=== PATIENT | male | born 1945 | race African-American/Black ===

== ENCOUNTER 2020-09-13 22:22 | Inpatient (IN) ==
[2020-09-13] MEDS ORDERED: SODIUM CHLORIDE 0.9% 1,000 ML IV STA (23:04)
[2020-09-13 23:09] LABS: Eosinophils % 0.2 % (0.00-10.9); Hemoglobin 10.6 GM/DL (14.0-18.0); Immature Granulocytes % 0.5 %; Immature Granulocytes Absolute 0.02 #; Lymphocytes # 0.6 10*3/uL (1.4-4.0); Mean Corpuscular HGB Conc 33.1 GM/DL (32-36); Mean Corpuscular Volume 85.1 FL (87-102); Mean Platelet Volume 10.1 FL (9.6-12.0); Monocytes % 6.4 % (1.7-12.7); Neutrophils % 78.9 % (38.7-73.9); Platelet Count 173 T/CUMM (130-400); Red Blood Count 3.76 MC/CUMM (3.8-5.5); Red Cell Distribution Width 12.5 % (9.3-17.3); White Blood Count 4.2 T/CUMM (4-12)
[2020-09-13 23:20] LABS: INR 1.1; PT Patient Result 11.3 SECS (9.8-11.9)
[2020-09-13 23:28] LABS: Albumin 2.8 G/DL (3.4-5.0); Bilirubin,Total 0.9 MG/DL (0.2-1.0); Calcium 8.2 MG/DL (8.5-10.1); Ferritin 1485.1 ng/ml (26-388); Osmolality,Calculated 282.5 MOS/KG (273-304); Potassium 3.8 MMOL/L (3.5-5.1); Total Protein 7.7 G/DL (6.4-8.3)
[2020-09-14] MEDS ORDERED: DEXAMETHASONE 10 MG/1 ML VIAL IV ONE (00:58)
[2020-09-14] MEDS ORDERED: AZITHROMYCIN INJ 500 MG in SODIUM CHLORIDE 0.9% 250 ML IV STA (00:58)
[2020-09-14] MEDS ORDERED: ONDANSETRON 4 MG/2 ML VIAL IV PRN (01:22)
[2020-09-14] MEDS ORDERED: NICOTINE 21 MG/24 HR PATCH TRANSDERM PRN (01:22)
[2020-09-14] MEDS ORDERED: MORPHINE 4 MG/1 ML VIAL IV PRN (01:22)
[2020-09-14] MEDS ORDERED: GLUCAGON 1 MG VIAL IM PRN (01:22)
[2020-09-14] MEDS ORDERED: MELATONIN 3 MG TABLET PO PRN (01:22)
[2020-09-14] MEDS ORDERED: ACETAMINOPHEN 325 MG TABLET PO PRN (01:22)
[2020-09-14] MEDS ORDERED: hydrALAZINE 20 MG/1 ML VIAL IV PRN (01:22)
[2020-09-14] MEDS ORDERED: diphenhydrAMINE CAP 25 MG CAPSULE PO PRN (01:22)
[2020-09-14] MEDS ORDERED: DEXTROSE 50% 25 GM/50 ML VIAL IV PRN (01:22)
[2020-09-14] MEDS ORDERED: SODIUM CHLORIDE 0.9% 1,000 ML IV SCH (01:30)
[2020-09-14 02:06] LABS: ABG Base Excess -3.8 MMOL/L (-2.5-2.5); ABG HCO3 20.5 MMOL/L (20-26); ABG Oxygen Saturation 96.6 % (95-100); ABG PCO2 34.1 MM HG (35-48); ABG PH 7.396 (7.35-7.45); ABG TCO2 21.5 MMOL/L (23-27)
[2020-09-14] MEDS: cefTRIAXone 1,000 MG in SYRINGE 1 EACH IV SCH (02:35)
[2020-09-14] MEDS ORDERED: REMDESIVIR 200 MG in SODIUM CHLORIDE 0.9% 210 ML IV ONE (09:00)
[2020-09-14] MEDS ORDERED: SODIUM CHLORIDE 0.9% 1,000 ML IV PRN (09:42)
[2020-09-14] MEDS: FAMOTIDINE 20 MG TABLET PO SCH ×2 (10:09→21:32)
[2020-09-14] MEDS: CHOLECALCIFEROL 1,000 UNIT TABLET PO SCH (10:09)
[2020-09-14] MEDS: ZINC GLUCONATE 50 MG TABLET PO SCH (10:09)
[2020-09-14] MEDS: ASCORBIC ACID 500 MG TABLET PO SCH ×2 (10:10→21:32)
[2020-09-14] MEDS: ENOXAPARIN 40 MG/0.4 ML SYRINGE SUBCUT SCH (10:10)
[2020-09-14] MEDS: CETIRIZINE 10 MG TABLET PO SCH (10:10)
[2020-09-14] MEDS: INSULIN REGULAR 100 UNIT/ML SUBCUT SCH ×4 (10:11→22:18)
[2020-09-14] MEDS: DEXAMETHASONE 4 MG/1 ML VIAL IV SCH (10:12)
[2020-09-14] MEDS: atenoloL 50 MG TABLET PO SCH (16:26)
[2020-09-14] MEDS ORDERED: INSULIN GLARGINE 100 UNIT/ML SUBCUT SCH (21:00)
[2020-09-14] MEDS ORDERED: FUROSEMIDE 40 MG/4 ML VIAL IV ONE (23:48)
[2020-09-15 06:26] LABS: Calcium 8.5 MG/DL (8.5-10.1); Osmolality,Calculated 296.3 MOS/KG (273-304); Potassium 5.1 MMOL/L (3.5-5.1)
[2020-09-15 06:31] LABS: Albumin 2.5 G/DL (3.4-5.0); Bilirubin,Total 0.7 MG/DL (0.2-1.0); Calcium 8.3 MG/DL (8.5-10.1); Osmolality,Calculated 296.3 MOS/KG (273-304); Potassium 5.3 MMOL/L (3.5-5.1); Total Protein 6.8 G/DL (6.4-8.3)
[2020-09-15] MEDS ORDERED: INSULIN GLARGINE 100 UNIT/ML SUBCUT SCH (07:47)
[2020-09-15] MEDS ORDERED: GLUCAGON 1 MG VIAL IM PRN (07:48)
[2020-09-15] MEDS ORDERED: DEXTROSE 50% 25 GM/50 ML VIAL IV PRN (07:48)
[2020-09-15] MEDS: cefTRIAXone 1,000 MG in SYRINGE 1 EACH IV SCH (08:38)
[2020-09-15] MEDS: ZINC GLUCONATE 50 MG TABLET PO SCH (08:41)
[2020-09-15] MEDS: PANTOPRAZOLE 40 MG TABLET PO SCH (08:41)
[2020-09-15] MEDS: AZITHROMYCIN 250 MG TABLET PO SCH (08:41)
[2020-09-15] MEDS: CETIRIZINE 10 MG TABLET PO SCH (08:41)
[2020-09-15] MEDS: ASCORBIC ACID 500 MG TABLET PO SCH ×2 (08:41→20:44)
[2020-09-15] MEDS: DEXAMETHASONE 4 MG/1 ML VIAL IV SCH (08:41)
[2020-09-15] MEDS: FAMOTIDINE 20 MG TABLET PO SCH ×2 (08:42→20:44)
[2020-09-15] MEDS: ENOXAPARIN 40 MG/0.4 ML SYRINGE SUBCUT SCH (08:42)
[2020-09-15] MEDS: CHOLECALCIFEROL 1,000 UNIT TABLET PO SCH (08:42)
[2020-09-15] MEDS: atenoloL 50 MG TABLET PO SCH (08:42)
[2020-09-15] MEDS: REMDESIVIR 100 MG in SODIUM CHLORIDE 0.9% 100 ML IV SCH (10:30)
[2020-09-15] MEDS: INSULIN LISPRO 100 UNIT/ML SUBCUT SCH ×3 (10:30→17:24)
[2020-09-15] MEDS: INSULIN REGULAR 100 UNIT/ML SUBCUT SCH (10:36)
[2020-09-15] MEDS: guaiFENesin/DM ER 600-30 MG TABLET PO PRN (11:48)
[2020-09-15 18:18] LABS: Microalbum/Creat Ratio Random 513.1 RATIO (0-30)
[2020-09-16 06:16] LABS: Albumin 2.4 G/DL (3.4-5.0); Calcium 8.5 MG/DL (8.5-10.1); Osmolality,Calculated 299.3 MOS/KG (273-304); Potassium 4.9 MMOL/L (3.5-5.1)
[2020-09-16] MEDS: AZITHROMYCIN 250 MG TABLET PO SCH (09:45)
[2020-09-16] MEDS: atenoloL 50 MG TABLET PO SCH (09:45)
[2020-09-16] MEDS: FAMOTIDINE 20 MG TABLET PO SCH ×2 (09:45→20:18)
[2020-09-16] MEDS: ASCORBIC ACID 500 MG TABLET PO SCH ×2 (09:45→20:18)
[2020-09-16] MEDS: CETIRIZINE 10 MG TABLET PO SCH (09:45)
[2020-09-16] MEDS: PANTOPRAZOLE 40 MG TABLET PO SCH (09:45)
[2020-09-16] MEDS: INSULIN LISPRO 100 UNIT/ML SUBCUT SCH ×4 (09:45→16:51)
[2020-09-16] MEDS: CHOLECALCIFEROL 1,000 UNIT TABLET PO SCH (09:45)
[2020-09-16] MEDS: APIXABAN 2.5 MG TABLET PO SCH ×2 (09:45→20:18)
[2020-09-16] MEDS: DEXAMETHASONE 4 MG/1 ML VIAL IV SCH (09:45)
[2020-09-16] MEDS: ZINC GLUCONATE 50 MG TABLET PO SCH (09:45)
[2020-09-16] MEDS: REMDESIVIR 100 MG in SODIUM CHLORIDE 0.9% 100 ML IV SCH (09:50)
[2020-09-16] MEDS: cefTRIAXone 1,000 MG in SYRINGE 1 EACH IV SCH (11:20)
[2020-09-16] MEDS ORDERED: INSULIN GLARGINE 100 UNIT/ML SUBCUT SCH (11:26)
[2020-09-16] MEDS ORDERED: SODIUM CHLORIDE 0.9% 1,000 ML IV SCH (12:00)
[2020-09-16] MEDS: INSULIN GLARGINE 100 UNIT/ML SUBCUT SCH (20:18)
[2020-09-17 05:40] LABS: Basophils % 0.1 % (0.0-0.8); Hematocrit 30.1 VOL% (42.0-52.0); Immature Granulocytes % 1.3 %; Immature Granulocytes Absolute 0.14 #; Lymphocytes # 0.5 10*3/uL (1.4-4.0); Lymphocytes % 4.3 % (21.2-54.2); Mean Corpuscular HGB Conc 33.2 GM/DL (32-36); Mean Corpuscular Volume 85.5 FL (87-102); Mean Platelet Volume 10.2 FL (9.6-12.0); Monocytes % 5.8 % (1.7-12.7); Neutrophils % 88.5 % (38.7-73.9); Platelet Count 243 T/CUMM (130-400); Red Blood Count 3.52 MC/CUMM (3.8-5.5); Red Cell Distribution Width 13.1 % (9.3-17.3); White Blood Count 10.9 T/CUMM (4-12)
[2020-09-17 06:05] LABS: Albumin 2.3 G/DL (3.4-5.0); Bilirubin,Total 0.5 MG/DL (0.2-1.0); Calcium 8.1 MG/DL (8.5-10.1); Hypochromasia Slight; Lymphocytes 5 % (20-55); Osmolality,Calculated 300.7 MOS/KG (273-304); Platelet Estimate Normal; Potassium 5.5 MMOL/L (3.5-5.1); Segmented Neutrophils 94 % (50-85); Total Cells Counted 100; Total Protein 6.5 G/DL (6.4-8.3)
[2020-09-17] MEDS ORDERED: SODIUM POLYSTYRENE SULFATE 15 GM/60 ML BOTTLE PO ONE (07:55)
[2020-09-17] MEDS: INSULIN LISPRO 100 UNIT/ML SUBCUT SCH ×6 (10:03→16:45)
[2020-09-17] MEDS: cefTRIAXone 1,000 MG in SYRINGE 1 EACH IV SCH (10:04)
[2020-09-17] MEDS: CHOLECALCIFEROL 1,000 UNIT TABLET PO SCH (10:05)
[2020-09-17] MEDS: AZITHROMYCIN 250 MG TABLET PO SCH (10:06)
[2020-09-17] MEDS: ASCORBIC ACID 500 MG TABLET PO SCH ×2 (10:08→21:20)
[2020-09-17] MEDS: ZINC GLUCONATE 50 MG TABLET PO SCH (10:08)
[2020-09-17] MEDS: PANTOPRAZOLE 40 MG TABLET PO SCH (10:09)
[2020-09-17] MEDS: atenoloL 50 MG TABLET PO SCH (10:09)
[2020-09-17] MEDS: APIXABAN 2.5 MG TABLET PO SCH ×2 (10:09→21:20)
[2020-09-17] MEDS: CETIRIZINE 10 MG TABLET PO SCH (10:10)
[2020-09-17] MEDS: FAMOTIDINE 20 MG TABLET PO SCH ×2 (10:10→21:20)
[2020-09-17] MEDS: DEXAMETHASONE 4 MG/1 ML VIAL IV SCH (10:10)
[2020-09-17] MEDS: REMDESIVIR 100 MG in SODIUM CHLORIDE 0.9% 100 ML IV SCH (10:11)
[2020-09-17] MEDS ORDERED: ASPIRIN CHEW 81 MG TABLET PO ONE (17:51)
[2020-09-17] MEDS ORDERED: NITROGLYCERIN SL 0.4 MG TABLET SL PRN (17:51)
[2020-09-17] MEDS ORDERED: ALUM/MAG/SIMETH/LIDO VISC 1:1 30 ML BOTTLE PO ONE (17:59)
[2020-09-17] MEDS: INSULIN GLARGINE 100 UNIT/ML SUBCUT SCH (21:20)
[2020-09-18 05:51] LABS: Basophils % 0.2 % (0.0-0.8); Hematocrit 31.1 VOL% (42.0-52.0); Hemoglobin 10.2 GM/DL (14.0-18.0); Immature Granulocytes % 4.4 %; Immature Granulocytes Absolute 0.41 #; Lymphocytes # 0.5 10*3/uL (1.4-4.0); Lymphocytes % 5.5 % (21.2-54.2); Mean Corpuscular HGB Conc 32.8 GM/DL (32-36); Mean Corpuscular Volume 85.4 FL (87-102); Mean Platelet Volume 10.1 FL (9.6-12.0); Monocytes % 7.9 % (1.7-12.7); Platelet Count 251 T/CUMM (130-400); Red Blood Count 3.64 MC/CUMM (3.8-5.5); White Blood Count 9.3 T/CUMM (4-12)
[2020-09-18 06:09] LABS: Albumin 2.3 G/DL (3.4-5.0); Bilirubin,Total 0.5 MG/DL (0.2-1.0); Calcium 8.3 MG/DL (8.5-10.1); Osmolality,Calculated 299.7 MOS/KG (273-304); Potassium 4.3 MMOL/L (3.5-5.1); Total Protein 6.9 G/DL (6.4-8.3)
[2020-09-18 06:25] LABS: Ferritin 888.6 ng/ml (26-388)
[2020-09-18] MEDS ORDERED: ENOXAPARIN 80 MG/0.8 ML SYRINGE SUBCUT SCH (08:00)
[2020-09-18] MEDS: FAMOTIDINE 20 MG TABLET PO SCH ×2 (08:54→21:14)
[2020-09-18] MEDS: CHOLECALCIFEROL 1,000 UNIT TABLET PO SCH (08:54)
[2020-09-18] MEDS: ZINC GLUCONATE 50 MG TABLET PO SCH (08:54)
[2020-09-18] MEDS: PANTOPRAZOLE 40 MG TABLET PO SCH (08:55)
[2020-09-18] MEDS: atenoloL 50 MG TABLET PO SCH (08:55)
[2020-09-18] MEDS: CETIRIZINE 10 MG TABLET PO SCH (08:55)
[2020-09-18] MEDS: AZITHROMYCIN 250 MG TABLET PO SCH (08:55)
[2020-09-18] MEDS: cefTRIAXone 1,000 MG in SYRINGE 1 EACH IV SCH (08:55)
[2020-09-18] MEDS: ASCORBIC ACID 500 MG TABLET PO SCH ×2 (08:55→21:13)
[2020-09-18] MEDS: INSULIN LISPRO 100 UNIT/ML SUBCUT SCH ×6 (08:56→16:22)
[2020-09-18] MEDS: DEXAMETHASONE 4 MG/1 ML VIAL IV SCH (08:58)
[2020-09-18] MEDS ORDERED: ASPIRIN EC 81 MG TABLET PO SCH (09:00)
[2020-09-18] MEDS: REMDESIVIR 100 MG in SODIUM CHLORIDE 0.9% 100 ML IV SCH (09:01)
[2020-09-18] MEDS: ROSUVASTATIN 20 MG TABLET PO SCH (09:01)
[2020-09-18 09:13] LABS: VLDL CHOLESTEROL 21.4 MG/DL
[2020-09-18 09:14] LABS: CKMB % 5.3 %
[2020-09-18 09:16] LABS: Troponin I 5.39 NG/ML (0.00-0.045)
[2020-09-18] MEDS: CLOPIDOGREL 75 MG TABLET PO SCH (11:59)
[2020-09-18] MEDS: INSULIN GLARGINE 100 UNIT/ML SUBCUT SCH (21:14)
[2020-09-18] MEDS: APIXABAN 2.5 MG TABLET PO SCH (21:14)
[2020-09-19 05:51] LABS: Basophils % 0.3 % (0.0-0.8); Hematocrit 32.5 VOL% (42.0-52.0); Hemoglobin 10.6 GM/DL (14.0-18.0); Immature Granulocytes % 4.9 %; Immature Granulocytes Absolute 0.53 #; Lymphocytes # 0.7 10*3/uL (1.4-4.0); Lymphocytes % 6.5 % (21.2-54.2); Mean Corpuscular HGB Conc 32.6 GM/DL (32-36); Mean Corpuscular Volume 86.2 FL (87-102); NRBC # 0.03 10*3/uL; Neutrophils % 80.3 % (38.7-73.9); Platelet Count 280 T/CUMM (130-400); Red Blood Count 3.77 MC/CUMM (3.8-5.5); Red Cell Distribution Width 13.2 % (9.3-17.3); White Blood Count 10.8 T/CUMM (4-12)
[2020-09-19 06:23] LABS: Calcium 8.3 MG/DL (8.5-10.1); Potassium 4.3 MMOL/L (3.5-5.1)
[2020-09-19 06:32] LABS: Anisocytosis 1+; Band Neutrophils 1 % (0-10); Lymphocytes 10 % (20-55); Platelet Estimate Normal; Segmented Neutrophils 78 % (50-85); Total Cells Counted 100
[2020-09-19 06:33] LABS: Macrocytosis Slight; Polychromasia Slight
[2020-09-19] MEDS: CHOLECALCIFEROL 1,000 UNIT TABLET PO SCH (08:39)
[2020-09-19] MEDS: atenoloL 50 MG TABLET PO SCH (08:39)
[2020-09-19] MEDS: guaiFENesin/DM ER 600-30 MG TABLET PO PRN (08:40)
[2020-09-19] MEDS: APIXABAN 2.5 MG TABLET PO SCH ×2 (08:40→21:32)
[2020-09-19] MEDS: DEXAMETHASONE 4 MG/1 ML VIAL IV SCH (08:40)
[2020-09-19] MEDS: PANTOPRAZOLE 40 MG TABLET PO SCH (08:40)
[2020-09-19] MEDS: CLOPIDOGREL 75 MG TABLET PO SCH (08:40)
[2020-09-19] MEDS: ASCORBIC ACID 500 MG TABLET PO SCH ×2 (08:40→21:32)
[2020-09-19] MEDS: FAMOTIDINE 20 MG TABLET PO SCH ×2 (08:40→21:32)
[2020-09-19] MEDS: ZINC GLUCONATE 50 MG TABLET PO SCH (08:40)
[2020-09-19] MEDS: ROSUVASTATIN 20 MG TABLET PO SCH (08:40)
[2020-09-19] MEDS: CETIRIZINE 10 MG TABLET PO SCH (08:40)
[2020-09-19] MEDS: INSULIN LISPRO 100 UNIT/ML SUBCUT SCH ×6 (08:42→18:31)
[2020-09-19] MEDS: cefTRIAXone 1,000 MG in SYRINGE 1 EACH IV SCH (09:31)
[2020-09-19] MEDS: INSULIN GLARGINE 100 UNIT/ML SUBCUT SCH (21:32)
[2020-09-20 06:47] LABS: Calcium 8.3 MG/DL (8.5-10.1); Potassium 4.4 MMOL/L (3.5-5.1)
[2020-09-20] MEDS: INSULIN LISPRO 100 UNIT/ML SUBCUT SCH ×6 (08:19→16:31)
[2020-09-20] MEDS: CHOLECALCIFEROL 1,000 UNIT TABLET PO SCH (08:54)
[2020-09-20] MEDS: CLOPIDOGREL 75 MG TABLET PO SCH (08:54)
[2020-09-20] MEDS: APIXABAN 2.5 MG TABLET PO SCH (08:54)
[2020-09-20] MEDS: CETIRIZINE 10 MG TABLET PO SCH (08:54)
[2020-09-20] MEDS: ASCORBIC ACID 500 MG TABLET PO SCH (08:54)
[2020-09-20] MEDS: ROSUVASTATIN 20 MG TABLET PO SCH (08:54)
[2020-09-20] MEDS: PANTOPRAZOLE 40 MG TABLET PO SCH (08:54)
[2020-09-20] MEDS: ZINC GLUCONATE 50 MG TABLET PO SCH (08:55)
[2020-09-20] MEDS: atenoloL 50 MG TABLET PO SCH (08:55)
[2020-09-20] MEDS: DEXAMETHASONE 4 MG/1 ML VIAL IV SCH (08:55)
[2020-09-20] MEDS: FAMOTIDINE 20 MG TABLET PO SCH (08:56)
[2020-09-20] MEDS: cefTRIAXone 1,000 MG in SYRINGE 1 EACH IV SCH (08:56)
[2020-09-20 16:07] VITALS: BP 146/73
== END 2020-09-20 18:10 | disposition home health service (06) | DRG 177 ==
LOC: N.ED 22:22 → N.EDINP 09-14 01:22 → SUATTDRO 09-14 01:22 → N.2E 09-14 02:00
PROVIDERS: ADMIT Internal Medicine; ATTEND Internal Medicine